=== PATIENT | male | born 1955 | race Two or more races ===

== ENCOUNTER 2021-04-16 08:13 | Outpatient (REF) | payer MEDICARE, MEDICAID, SELFPAY ==
--- NOTE | ~2021-04-16 | US_ITS ---
EXAMINATION: US RETROPERITONEAL LIMITED (AORTA) CLINICAL INFORMATION: History of smoking, hypertension. COMPARISON: None TECHNIQUE: Angel-scale, color Doppler and spectral Doppler evaluation of the abdominal aorta. The mid aorta is partially obscured by overlapping bowel gas. FINDINGS: There is atherosclerotic plaque. The measurements of the aorta in maximum AP and transverse dimensions respectively are as follows: Proximal: 2.8 x 3.0 cm. Mid: 2.3 x 2.3 cm. Distal: 1.7 x 1.6 cm. PSV: 108 cm/s. The measurements of the common iliac arteries in maximum AP and TRV dimensions are as follows: Right Common Iliac Artery: 1.2 x 1.0 cm. Left Common Iliac Artery: 1.1 x 0.9 cm. US/US aorta IMPRESSION: There is borderline aneurysmal dilatation of the proximal abdominal aorta. Recommend continued ultrasound surveillance.
== END 2021-04-16 08:14 | disposition home or self-care (01) ==
LOC: HO.US 08:13
PROVIDERS: PCP Nurse Practitioner Family; Visit Provider Nurse Practitioner Family
DX: Z13.6 Encounter for screening for cardiovascular disorders (principal); I10 Essential (primary) hypertension; Z87.891 Personal history of nicotine dependence
CPT/HCPCS: 76775

== ENCOUNTER → 2021-07-21 10:24 | Outpatient (BNVA) | payer MEDICARE, MEDICAID, SELFPAY | PROVIDERS: PCP Nurse Practitioner Family; Referring Provider Nurse Practitioner Family; Visit Provider Nurse Practitioner Family | DX: G47.33 Obstructive sleep apnea (adult) (pediatric) (principal); R06.83 Snoring; I10 Essential (primary) hypertension; F39 Unspecified mood [affective] disorder | CPT/HCPCS: 99202 ==

== ENCOUNTER 2021-10-16 14:20 | Outpatient (REF) | payer MEDICARE, MEDICAID, SELFPAY ==
--- NOTE | ~2021-10-16 | CT_ITS ---
EXAMINATION: CT CHEST SCREENING CLINICAL INFORMATION: Former smoker. 40 pack year history. COMPARISON: Previous chest CT November 2006 TECHNIQUE: Multidetector volumetric CT imaging of the chest is performed without contrast using low dose technique. Additional 2D coronal and sagittal reformatted images and axial 3D maximum intensity projection (MIP) images are generated on the CT workstation. This CT examination was performed using dose optimization techniques as appropriate, variously including the following: *Automated exposure control *Adjustment of mA and/or kV according to patient size (this includes techniques or standardized protocols for targeted exams where dose is matched to indication/reason for exam; i.e. extremities or head) *Use of iterative reconstruction technique DLP: 57 MGy-cm FINDINGS: LUNGS: There is a faint 1.2 x 1.3 cm groundglass attenuation left upper lobe nodule axial image 123 series 5. The lungs are otherwise clear. MEDIASTINUM: Mild coronary artery calcification. The mediastinum is otherwise normal. PLEURA: There is no pleural effusion. No pleural mass or thickening. AXILLA: No lymphadenopathy. UPPER ABDOMEN: Unremarkable OSSEOUS STRUCTURES: There are degenerative changes of the spine. CT/CT lung screening IMPRESSION: 1.2 x 1.3 cm solitary groundglass attenuation left upper lobe nodule ASSESSMENT: Lung-RADS category 3: Probably Benign RECOMMENDATION: Six-month low-dose chest CT follow-up recommended
== END 2021-10-16 14:21 | disposition home or self-care (01) ==
LOC: HO.CT 14:20
PROVIDERS: PCP Nurse Practitioner Family; Visit Provider Physician Assistant Medical
DX: Z87.891 Personal history of nicotine dependence (principal)
CPT/HCPCS: 71271; G0296

== ENCOUNTER → 2021-11-01 20:17 | Outpatient (REF) | payer MEDICARE, MEDICAID, SELFPAY | LOC: HO.SL 20:17 | PROVIDERS: Visit Provider Psychiatry & Neurology Neurology | DX: G47.33 Obstructive sleep apnea (adult) (pediatric) (principal); F39 Unspecified mood [affective] disorder; I10 Essential (primary) hypertension | CPT/HCPCS: 95810 ==

== ENCOUNTER → 2021-11-24 10:09 | Outpatient (BNVA) | payer MEDICARE, MEDICAID, SELFPAY | PROVIDERS: PCP Nurse Practitioner Family; Visit Provider Nurse Practitioner Family | DX: G47.33 Obstructive sleep apnea (adult) (pediatric) (principal) | CPT/HCPCS: 99212 ==

== ENCOUNTER → 2022-01-20 19:50 | Outpatient (REF) | payer MEDICARE, MEDICAID, SELFPAY | LOC: HO.SL 19:50 | PROVIDERS: PCP Nurse Practitioner Family; Visit Provider Nurse Practitioner Family | DX: G47.33 Obstructive sleep apnea (adult) (pediatric) (principal) | CPT/HCPCS: 95811 ==

== ENCOUNTER 2022-01-22 10:33 | Outpatient (REF) | payer MEDICARE, MEDICAID, SELFPAY ==
--- NOTE | ~2022-01-22 | CT_ITS ---
EXAMINATION: CT CHEST SCREENING CLINICAL INFORMATION: Pulmonary nodule follow-up COMPARISON: 10/16/2021 TECHNIQUE: Multidetector volumetric CT imaging of the chest is performed without contrast using low dose technique. Additional 2D coronal and sagittal reformatted images and axial 3D maximum intensity projection (MIP) images are generated on the CT workstation. This CT examination was performed using dose optimization techniques as appropriate, variously including the following: *Automated exposure control *Adjustment of mA and/or kV according to patient size (this includes techniques or standardized protocols for targeted exams where dose is matched to indication/reason for exam; i.e. extremities or head) *Use of iterative reconstruction technique DLP: 66 mGy-cm FINDINGS: LUNGS: Stable groundglass nodule in the left upper lobe, which approximates 2.0 x 1.7 cm transaxially, stable from prior MEDIASTINUM: Normal heart size. Triple vessel coronary calcifications. No mediastinal, hilar or supraclavicular lymphadenopathy. PLEURA: There is no pleural effusion. No pleural mass or thickening. AXILLA: No lymphadenopathy. UPPER ABDOMEN: Stable 1.1 cm cyst in the medial segment, likely subcentimeter cyst in the lateral segment. Diverticulosis coli. OSSEOUS STRUCTURES: Unremarkable. CT/CT lung screen follow up IMPRESSION: Stable 1.9 cm groundglass nodule in the left upper lobe. There are no nodules meeting criteria for short interval follow-up. ASSESSMENT: Lung-RADS category 2: Benign RECOMMENDATION: Routine annual low-dose CT screening in 12 months.
== END 2022-01-22 10:34 | disposition home or self-care (01) ==
LOC: HO.CT 10:33
PROVIDERS: Visit Provider Physician Assistant Medical
DX: Z87.891 Personal history of nicotine dependence (principal)
CPT/HCPCS: 71250

== ENCOUNTER → 2022-01-29 10:36 | Outpatient (BNVA) | payer MEDICARE, MEDICAID, SELFPAY | PROVIDERS: PCP Nurse Practitioner Family; Visit Provider Surgery | DX: R91.1 Solitary pulmonary nodule (principal); Z87.891 Personal history of nicotine dependence | CPT/HCPCS: 99202 ==

== ENCOUNTER → 2022-03-23 10:15 | Outpatient (BNVA) | payer MEDICARE, MEDICAID, SELFPAY | PROVIDERS: PCP Nurse Practitioner Family; Visit Provider Nurse Practitioner Family | DX: G47.33 Obstructive sleep apnea (adult) (pediatric) (principal) | CPT/HCPCS: 99212 ==

== ENCOUNTER 2022-04-24 19:02 | Emergency (ER) | payer MEDICARE, MEDICAID, SELFPAY ==
--- NOTE | ~2022-04-24 | XR_ITS ---
EXAMINATION: XR CHEST CLINICAL INFORMATION: Productive cough COMPARISON: None TECHNIQUE: Frontal view of the chest was obtained. FINDINGS: No airspace consolidation. No pleural effusion or pneumothorax. Normal cardiomediastinal silhouette and pulmonary vascularity. No acute osseous injury. XR/XR chest 1V IMPRESSION: No airspace consolidation or effusions.
--- NOTE | ~2022-04-24 | CT_ITS ---
EXAMINATION: CT ANGIOGRAM OF THE CHEST WITH AND WITHOUT CONTRAST (CT PULMONARY ANGIOGRAM FOR PE) CLINICAL INFORMATION: Reason for Exam cough, hemoptysis, weakness COMPARISON: 01/22/2022 TECHNIQUE: Prior to contrast administration, noncontrast localization images were obtained. Subsequently, multidetector volumetric imaging was performed from the thoracic inlet to below the diaphragms following the administration of 75 mL Omnipaque 350 intravenous contrast. No contrast reaction reported Sagittal, coronal, and MIP oblique sagittal reformatted images were obtained on the CT workstation, uploaded to PACS, and reviewed. This CT examination was performed using dose optimization techniques as appropriate, variously including the following: *Automated exposure control *Adjustment of mA and/or kV according to patient size (this includes techniques or standardized protocols for targeted exams where dose is matched to indication/reason for exam; i.e. extremities or head) *Use of iterative reconstruction technique Total exam dose-length product 399 mGy-cm FINDINGS: QUALITY OF STUDY/CONTRAST BOLUS: Satisfactory. PULMONARY ARTERIES: No central or segmental pulmonary emboli. THORACIC AORTA: No aneurysm or dissection. Calcification is present at the aortic arch. LUNG: There are symmetric regions of patchy consolidation/groundglass opacity bilaterally with lower lung zone predominance. Previously identified subtle focal ground glass opacity in the left upper lobe on 01/22/2022 persists. PLEURA: No pleural effusion or pneumothorax. MEDIASTINUM: The visualized thyroid gland is unremarkable. There are subcentimeter mediastinal lymph nodes within the range of normal variation. Borderline cardiomegaly without pericardial effusion. No evidence of septal bowing or right heart strain. CHEST WALL/AXILLA: No axillary or internal mammary lymphadenopathy. OSSEOUS STRUCTURES: Degenerative changes are noted in the spine. UPPER ABDOMEN: Small hypoattenuating foci in the liver are statistically favored to represent cysts. No reflux of contrast into the hepatic veins to suggest elevated right heart pressures. CT/CT angio chest PE protocol IMPRESSION: 1. No pulmonary embolus identified. 2. Basilar predominant patchy bilateral consolidations. Clinical correlation is recommended, as this distribution can be seen with Covid pneumonia. 3. Previously identified subtle focal ground glass opacity in the left upper lobe on 01/22/2022 again noted; attention on follow-up recommended as per prior report recommendations. VTE: negative
[2022-04-24 19:26] VITALS: BP 147/75; PULSE 87; RESP 18; TEMP 37.8; O2SAT 95
[2022-04-24 19:50] LABS: Hematocrit 46.6 % (42.0-52.0); Hemoglobin 15.3 g/dl (14.0-18.0); Imm Gran Abs Auto 0.01 X10*3/uL (0.00-0.03); Imm Gran Pct Auto 0.2 % (0.0-0.4); Lymphocytes Absolute Auto 1.4 X10*3/uL (1.2-4.9); Lymphocytes Percent Auto 33.3 % (20-40); MANUAL DIFF FLAG SCAN; Mean Corpuscular HGB Conc 32.8 g/dl (31.0-36.0); Mean Corpuscular Hemoglobin 28.9 pg (27.0-33.0); Mean Corpuscular Volume 87.9 fL (80.0-98.0); Mean Platelet Volume 10.7 fL (9.4-12.4); Monocytes Absolute Auto 0.7 X10*3/uL (0.1-1.2); Monocytes Percent Auto 18.2 % (2-11); Neutrophils Percent Auto 48.3 % (45-73); Platelet Count 179 X10*3/uL (160-400); Red Cell Distribution Width 13.4 % (11.0-16.0); SCAN SMEAR FLAG 1; White Blood Count 4.1 X10*3/uL (4.8-10.8)
[2022-04-24 19:57] VITALS: BP 145/75; PULSE 87; RESP 18; TEMP 37.8; O2SAT 95; BMI 31.0
[2022-04-24 20:09] LABS: Alanine Aminotransferase 85 U/L (0-40); Albumin Level 3.5 g/dL (3.5-5.0); Alkaline Phosphatase 61 U/L (39-117); Anion Gap 15 (12-20); Aspartate Amino Transferase 66 U/L (5-37); Bilirubin Total 0.6 mg/dL (0.0-1.0); Blood Urea Nitrogen 20 mg/dL (9-16); Calcium 8.2 mg/dL (8.4-10.2); Carbon Dioxide 26 mmol/L (22-29); Chloride 101 mmol/L (96-108); Creatinine Clr Calc Pharmacy 82.1; Estimated Glomerular Filt Rate > 60; Glucose Random 129 mg/dL (60-115); Sodium 138 mmol/L (135-145); Total Protein 7.5 g/dL (6.5-8.0)
[2022-04-24 20:29] LABS: SLIDE REVIEW VERIFIED
[2022-04-24 20:49] LABS: COVID-19 Test Positive (Negative)
--- NOTE | 2022-04-24 21:06 | ED.GENADULT ---
HPI - General Adult General Chief complaint: General Medical Stated complaint: Unsteady gait/Not feeling well Time Seen by Provider: 04/24/22 21:05 Source: patient, family and old records reviewed Mode of arrival: ambulatory Limitations: no limitations History of Present Illness HPI narrative: 66 yo male with hx of SERGEI, HLD, pulmonary nodule, HTN, dx with COVID 2.5 weeks ago reports overall feeling weak and tired and 1 week reports productive cough with hemoptysis only on ASA. He is followed for a stable lung nodule by thoracic surgery MD complaint: cough with hemopytis Onset (ago): week(s) (1) Location: chest Severity: moderate Quality: dull Pain Consistency: intermittent Relieving factors: none Exacerbating factors: other (exertion and coughing) Associated symptoms: loss of appetite, malaise, shortness of breath and weakness Treatments prior to arrival: none Related Data Home Medications Medication Instructions Recorded Confirmed amlodipine 10 mg tablet 10 mg PO DAILY 07/21/21 03/23/22 aspirin 81 mg tablet,delayed 81 mg PO DAILY 07/21/21 03/23/22 release atorvastatin 40 mg tablet 40 mg PO DAILY 07/21/21 03/23/22 blood pressure test kit-large #1 ea 07/21/21 03/23/22 chlorthalidone 25 mg tablet 25 mg PO DAILY 07/21/21 03/23/22 losartan 50 mg tablet 50 mg PO DAILY 07/21/21 03/23/22 metoprolol tartrate 25 mg tablet 25 mg PO BID 07/21/21 03/23/22 Previous Rx's Medication Instructions Recorded cefuroxime axetil 500 mg tablet 500 mg PO BID 7 days #14 tabs 04/24/22 dexamethasone 6 mg tablet 6 mg PO DAILY 5 days #5 tabs 04/24/22 doxycycline hyclate 100 mg capsule 100 mg PO BID 7 days #14 caps 04/24/22 Allergies Allergy/AdvReac Type Severity Reaction Status Date / Time No Known Allergies Allergy Verified 04/24/22 19:56 Review of Systems Review of Systems: Constitutional : No Fever, No Chills, pos fatigue ENT/Mouth : No sore throat, No Rhinorrhea, No Swallowing Difficulty Eyes: No Eye Pain, No Swelling, No Redness Cardiovascular : No Chest Pain, positive SOB, No Orthopnea, pos Edema Respiratory : pos Cough, pos Sputum, No Wheezing, positive dyspnea Gastrointestinal : No Nausea, No Vomiting, No Diarrhea, No abdominal Pain, No Hematochezia, No Melena Genitourinary : No Dysuria, No Urinary Frequency, No Hematuria Musculoskeletal : No joint pain, No Myalgias Skin : No Skin Lesions, No rash Neuro : pos Weakness, No Numbness, No Dizziness, No Headache Psych : No Anxiety/Panic, No Depression Heme/Lymph: No Bruising, No Lymphadenopathy Endocrine : No Polyuria, No Polydipsia All other systems reviewed and are negative [facility] Past Medical History Attestation statement: The following information was validated with the patient. Medical History Dilation of aorta (~03/2021) Essential hypertension Hyperlipidemia Mood disorder Obstructive sleep apnea Personal history of nicotine dependence Surgical History History of carpal tunnel surgery History of circumcision History of colonoscopy History of knee replacement procedure of left knee History of knee replacement procedure of right knee Family History Family History Mother Alzheimers disease Father CAD (coronary artery disease) Stroke Brother Thyroid disease Brother Colon cancer Brother Prostate cancer Sister Breast cancer Social History Social History Household Members: Spouse Alcohol intake: never Patient Tobacco Use Status: Former Tobacco user Tobacco use type: Cigarette and Cigar Cigarette Packs Per Day: 1 Years Smoked: onset 18yo, 1ppd x 33yrs, 30pyh, quit 2007 Use of substances other than those prescribed or required for medical reasons: No Advance Directives: No Advance Directives Information Provided: No Physical Exam ED Vital Signs: Vital Signs - 24 hr 04/24/22 19:26 04/24/22 19:57 04/24/22 21:54 Temperature 100.1 F 100.1 F 98.6 F Pulse Rate 87 87 86 Respiratory Rate 18 18 18 Blood Pressure 147/75 H 145/75 H 125/75 Pulse Oximetry 95 95 94 Oxygen Delivery Method Room Air Room Air Room Air BMI result Body Mass Index 31.0 Appearance: Alert. Oriented X3. No acute distress. Eyes: Pupils equal, round and reactive to light. ENT: Pharynx normal. Neck: Normal inspection. Neck supple. CVS: Normal heart rate and rhythm. Pulses normal. Respiratory: No respiratory distress. Breath sounds diminished. Scant streaks of blood brb noted on kleenex Abdomen: Soft and nontender. Skin: Skin warm and dry. Normal skin color. Normal skin turgor. Extremities: trace bilateral L > R lower extremity edema. No calf ttp Neuro: Oriented X 3. No motor deficit. No sensory deficit. Course Course Course Narrative: + COVID pneumonia but no hypoxia and dx 2.5 weeks ago anticipate starting on steroids and antibiotics stop aspirin follow up with PCP Medical Decision Making [facility] Narrative Medical decision making narrative: 66 yo male with hx of SERGEI, HLD, pulmonary nodule, HTN here with c/o worsening fatigue, LANDA, weakness and poor PO intake now with associated cough and hemoptysis. He was dx with COVID 2.5 weeks ago did not receive any treatments. At this time will need labs, EKG, CTA for PE / Mass. Dispo per results and findings. Lab Data Result diagrams: 04/24/22 19:44 04/24/22 19:44 Labs: Lab Results 04/24/22 04/24/22 04/24/22 Range/Units 19:44 19:44 19:44 WBC 4.1 L (4.8-10.8) X10*3/uL RBC 5.30 (4.60-5.80) X10*6/uL Hgb 15.3 (14.0-18.0) g/dl Hct 46.6 (42.0-52.0) % MCV 87.9 (80.0-98.0) fL MCH 28.9 (27.0-33.0) pg MCHC 32.8 (31.0-36.0) g/dl RDW 13.4 (11.0-16.0) % Plt Count 179 (160-400) X10*3/uL MPV 10.7 (9.4-12.4) fL Immature Gran % (Auto) 0.2 (0.0-0.4) % Neut % (Auto) 48.3 (45-73) % Lymph % (Auto) 33.3 (20-40) % [place] % (Auto) 18.2 H (2-11) % Eos % (Auto) 0.0 (0-4) % Baso % (Auto) 0.0 (0-2) % Lymph # (Auto) 1.4 (1.2-4.9) X10*3/uL [place] # (Auto) 0.7 (0.1-1.2) X10*3/uL Eos # (Auto) 0.0 (0.0-0.4) X10*3/uL Baso # (Auto) 0.0 (0.0-0.2) X10*3/uL Abs Immat Gran (auto) 0.01 (0.00-0.03) X10*3/uL Absolute Neuts (auto) 2.0 (2.0-8.3) x10*3/uL Absolute Nucleated RBC 0.000 (0.0-0.012) X10*3/uL Nucleated RBC % (auto) 0.0 (0.0-0.2) /100WBC Smear Tech's Comments VERIFIED Sodium 138 (135-145) mmol/L Potassium 4.0 (3.3-5.1) mmol/L Chloride 101 (96-108) mmol/L Carbon Dioxide 26 (22-29) mmol/L Anion Gap 15 (12-20) BUN 20 H (9-16) mg/dL Creatinine 0.95 (0.5-1.4) mg/dL Estim Creat Clear Calc 82.1 Estimated GFR > 60 Random Glucose 129 H (60-115) mg/dL Calcium 8.2 L (8.4-10.2) mg/dL Total Bilirubin 0.6 (0.0-1.0) mg/dL AST 66 H (5-37) U/L ALT 85 H (0-40) U/L Alkaline Phosphatase 61 (39-117) U/L Troponin I High Sens (<3.5-35.0) ng/L B-Natriuretic Peptide (<100) pg/mL Total Protein 7.5 (6.5-8.0) g/dL Albumin 3.5 (3.5-5.0) g/dL COVID-19 (JAYCOB) Positive A (Negative) COVID-19 Clin Com See Note 04/24/22 Range/Units 19:44 WBC (4.8-10.8) X10*3/uL RBC (4.60-5.80) X10*6/uL Hgb (14.0-18.0) g/dl Hct (42.0-52.0) % MCV (80.0-98.0) fL MCH (27.0-33.0) pg MCHC (31.0-36.0) g/dl RDW (11.0-16.0) % Plt Count (160-400) X10*3/uL MPV (9.4-12.4) fL Immature Gran % (Auto) (0.0-0.4) % Neut % (Auto) (45-73) % Lymph % (Auto) (20-40) % [place] % (Auto) (2-11) % Eos % (Auto) (0-4) % Baso % (Auto) (0-2) % Lymph # (Auto) (1.2-4.9) X10*3/uL [place] # (Auto) (0.1-1.2) X10*3/uL Eos # (Auto) (0.0-0.4) X10*3/uL Baso # (Auto) (0.0-0.2) X10*3/uL Abs Immat Gran (auto) (0.00-0.03) X10*3/uL Absolute Neuts (auto) (2.0-8.3) x10*3/uL Absolute Nucleated RBC (0.0-0.012) X10*3/uL Nucleated RBC % (auto) (0.0-0.2) /100WBC Smear Tech's Comments Sodium (135-145) mmol/L Potassium (3.3-5.1) mmol/L Chloride (96-108) mmol/L Carbon Dioxide (22-29) mmol/L Anion Gap (12-20) BUN (9-16) mg/dL Creatinine (0.5-1.4) mg/dL Estim Creat Clear Calc Estimated GFR Random Glucose (60-115) mg/dL Calcium (8.4-10.2) mg/dL Total Bilirubin (0.0-1.0) mg/dL AST (5-37) U/L ALT (0-40) U/L Alkaline Phosphatase (39-117) U/L Troponin I High Sens 6.0 (<3.5-35.0) ng/L B-Natriuretic Peptide < 10 (<100) pg/mL Total Protein (6.5-8.0) g/dL Albumin (3.5-5.0) g/dL COVID-19 (JAYCOB) (Negative) COVID-19 Clin Com ECG Data Attestation: I personally reviewed and interpreted this ECG as follows: Interpretation: Rate: 81 Rhythm: NSR [place]: normal Normal P waves. Normal MEE. Normal QRS complex. ST T wave : normal no AUBREY qTC: normal prior studies: no acute ischemia The study has been interpreted contemporaneously by me. . Discharge Plan Discharge Clinical Impression: Atypical pneumonia, Cough with hemoptysis Patient Disposition: Home, Self-Care Instructions: Hemoptysis (ED), Pneumonia (ED) Additional Instructions: regresar al servicio de urgencias por cualquier empeoramiento de los s?ntomas o inquietudes SIN ASPIRINA Prescriptions: New doxycycline hyclate 100 mg capsule 100 mg PO BID 7 Days Qty: 14 0RF cefuroxime axetil 500 mg tablet 500 mg PO BID 7 Days Qty: 14 0RF dexamethasone 6 mg tablet 6 mg PO DAILY 5 Days Qty: 5 0RF No Action metoprolol tartrate 25 mg tablet 25 mg PO BID amlodipine 10 mg tablet 10 mg PO DAILY aspirin 81 mg tablet,delayed release (DR/EC) 81 mg PO DAILY chlorthalidone 25 mg tablet 25 mg PO DAILY atorvastatin 40 mg tablet 40 mg PO DAILY losartan 50 mg tablet 50 mg PO DAILY (DME) blood pressure test kit-large Kit See Rx Instructions .ROUTE DAILY Qty: 1 Rx Instructions: As directed Referrals: Maris Subramanian [Primary Care Provider] - 3 days (if not better) Print Language: Occitan
--- NOTE | 2022-04-24 21:50 | ECG_ITS ---
Test Reason : dyspenea Blood Pressure : / mmHG Vent. Rate : 081 BPM Atrial Rate : 081 BPM P-R Int : 192 ms QRS Dur : 082 ms QT Int : 384 ms P-R-T Axes : 045 -03 004 degrees QTc Int : 446 ms Normal sinus rhythm Normal ECG When compared with ECG of 25-JUN-2008 08:32, No significant change was found Referred By: Corina Llanes Electronically Signed By:HORTENCIA PARSONS
[2022-04-24 21:54] VITALS: BP 125/75; PULSE 86; RESP 18; TEMP 37; O2SAT 94
[2022-04-24 22:15] LABS: B Type Natriuretic Peptide < 10 pg/mL (<100)
[2022-04-24] MEDS: HYDROcodone/Homat 5/1.5/5 ML 5 ML SYRUP PO (22:39)
[2022-04-24] MEDS: ondansetron HCL 4 MG/2 ML VIAL IVPUSH (22:40)
--- NOTE | 2022-04-24 22:40 | PC.NURSE ---
pt drowsy, orientedx3, vss, medicated per provider order, 20G IV placed right AC.
[2022-04-25] MEDS: dexAMETHasone 6 MG TABLET PO (01:12)
== END 2022-04-25 01:17 | disposition home or self-care (01) ==
PROVIDERS: Emergency Provider Emergency Medicine; PCP Nurse Practitioner Family
DX: U07.1 COVID-19 (principal); J12.82 Pneumonia due to coronavirus disease 2019; R05.9 Cough, unspecified; R04.2 Hemoptysis; R53.1 Weakness; R06.02 Shortness of breath; I10 Essential (primary) hypertension; E78.5 Hyperlipidemia, unspecified; R26.81 Unsteadiness on feet; Z79.02 Long term (current) use of antithrombotics/antiplatelets; Z79.82 Long term (current) use of aspirin; Z79.899 Other long term (current) drug therapy; Z87.891 Personal history of nicotine dependence
CPT/HCPCS: 71045; 71275; 80053; 83880; 84484; 85025; 87635; 93005; 96374; 99284; J2405; J8540

== ENCOUNTER 2022-06-09 09:51 | Outpatient (REF) | payer MEDICARE, MEDICAID, SELFPAY ==
--- NOTE | ~2022-06-09 | US_ITS ---
EXAMINATION: US RETROPERITONEAL LIMITED (AORTA) CLINICAL INFORMATION: Aortic ectasia. Smoking history.. COMPARISON: 04/16/2021 TECHNIQUE: Angel-scale, color Doppler and spectral Doppler evaluation of the abdominal aorta. FINDINGS: Atherosclerotic aorta. The measurements of the aorta in maximum AP and transverse dimensions respectively are as follows: Proximal: 2.9 x 2.9 cm. Mid: 2.4 x 2.5 cm. Distal: 1.7 x 1.8 cm. PSV: 134 cm/s. The measurements of the common iliac arteries in maximum AP and TRV dimensions are as follows: Right Common Iliac Artery: 1.2 x 1.1 cm. Left Common Iliac Artery: 1.2 x 1.0 cm. US/US abdominal aortic aneurysm IMPRESSION: Stable study. The proximal abdominal aorta is at the upper limits of normal.
== END 2022-06-09 09:52 | disposition home or self-care (01) ==
LOC: HO.US 09:51
PROVIDERS: Visit Provider Nurse Practitioner Family
DX: I77.819 Aortic ectasia, unspecified site (principal); D12.6 Benign neoplasm of colon, unspecified; D75.1 Secondary polycythemia; E66.9 Obesity, unspecified; E78.5 Hyperlipidemia, unspecified; G47.33 Obstructive sleep apnea (adult) (pediatric); I10 Essential (primary) hypertension; M25.562 Pain in left knee; N52.9 Male erectile dysfunction, unspecified; R73.03 Prediabetes; R91.8 Other nonspecific abnormal finding of lung field; Z87.891 Personal history of nicotine dependence
CPT/HCPCS: 76706

== ENCOUNTER → 2022-07-20 10:18 | Outpatient (BNVA) | payer MEDICARE, MEDICAID, SELFPAY | PROVIDERS: PCP Nurse Practitioner Family; Visit Provider Nurse Practitioner Family | DX: G47.33 Obstructive sleep apnea (adult) (pediatric) (principal) | CPT/HCPCS: 99212 ==

== ENCOUNTER 2022-08-06 08:50 | Outpatient (REF) | payer MEDICARE, MEDICAID, SELFPAY ==
--- NOTE | ~2022-08-06 | CT_ITS ---
EXAMINATION: CT CHEST SCREENING CLINICAL INFORMATION: Solitary pulmonary. COMPARISON: None. TECHNIQUE: Multidetector volumetric CT imaging of the chest is performed without contrast using low dose technique. Additional 2D coronal and sagittal reformatted images and axial 3D maximum intensity projection (MIP) images are generated on the CT workstation. This CT examination was performed using dose optimization techniques as appropriate, variously including the following: *Automated exposure control *Adjustment of mA and/or kV according to patient size (this includes techniques or standardized protocols for targeted exams where dose is matched to indication/reason for exam; i.e. extremities or head) *Use of iterative reconstruction technique DLP: 60 mGy-cm FINDINGS: LUNGS: The lungs are well-expanded and clear of acute pneumonic process. No pulmonary nodule, mass or groundglass density seen. MEDIASTINUM: The thyroid lobes are symmetric and normal. The central trachea and bronchi are widely patent. Heart size and the great vessels are normal caliber. No abnormal size mediastinal or hilar lymph nodes seen. There is no pericardial effusion seen. CORONARY ARTERY CALCIFICATION: Mild coronary artery calcifications are present. PLEURA: There is no pleural effusion. No pleural mass or thickening. AXILLA: No lymphadenopathy. UPPER ABDOMEN: Visualized liver, spleen, pancreas, adrenal glands and the gallbladder appears unremarkable. OSSEOUS STRUCTURES: No aggressive lytic or sclerotic process seen. There is mild to moderate ventral spondylosis throughout dorsal spine. No aggressive lytic or sclerotic process seen. CT/CT lung screen follow up IMPRESSION: No acute process. No pulmonary nodule visualized. ASSESSMENT: Lung-RADS category 1: Negative. RECOMMENDATION: Low-dose annual CT chest.
== END 2022-08-06 08:51 | disposition home or self-care (01) ==
LOC: HO.CT 08:50
PROVIDERS: Visit Provider Surgery
DX: R91.1 Solitary pulmonary nodule (principal)
CPT/HCPCS: 71250

== ENCOUNTER → 2022-08-18 14:03 | Outpatient (BNVA) | payer MEDICARE, MEDICAID, SELFPAY | PROVIDERS: PCP Nurse Practitioner Primary Care; Visit Provider Urology | DX: N52.9 Male erectile dysfunction, unspecified (principal) | CPT/HCPCS: 99202 ==

== ENCOUNTER → 2022-10-08 09:23 | Outpatient (BNVA) | payer MEDICARE, MEDICAID, SELFPAY | PROVIDERS: PCP Nurse Practitioner Primary Care; Visit Provider Surgery | DX: R91.1 Solitary pulmonary nodule (principal); J18.9 Pneumonia, unspecified organism; U09.9 Post COVID-19 condition, unspecified; I77.810 Thoracic aortic ectasia; I10 Essential (primary) hypertension; Z87.891 Personal history of nicotine dependence | CPT/HCPCS: 99212 ==

== ENCOUNTER → 2022-11-19 14:55 | Outpatient (BNVA) | payer MEDICARE, MEDICAID, SELFPAY | PROVIDERS: PCP Nurse Practitioner Primary Care; Visit Provider Urology | DX: N52.9 Male erectile dysfunction, unspecified (principal); I10 Essential (primary) hypertension; E78.5 Hyperlipidemia, unspecified; G47.30 Sleep apnea, unspecified; F17.290 Nicotine dependence, other tobacco product, uncomplicated; Z79.82 Long term (current) use of aspirin; Z79.899 Other long term (current) drug therapy | CPT/HCPCS: 99212 ==

== ENCOUNTER → 2023-01-03 10:31 | Outpatient (BNVA) | payer OTHER, SELFPAY | PROVIDERS: PCP Nurse Practitioner Primary Care; Visit Provider Nurse Practitioner Family | DX: G47.33 Obstructive sleep apnea (adult) (pediatric) (principal); Z99.89 Dependence on other enabling machines and devices | CPT/HCPCS: 99212 ==

== ENCOUNTER 2023-06-09 11:15 | Outpatient (AMB) | payer MEDICARE, MEDICAID, SELFPAY ==
--- NOTE | 2023-06-09 11:30 | A.OFFVIS_ITS ---
Intake Vital Signs 06/09/23 11:33 Height 5 ft 8 in Weight 209 lb BMI 31.8 Pulse 61 Pulse Source Pulse Oximeter Pulse Oximetry (%) 99 Oxygen Delivery Method Room Air Intake Visit Reasons: 5 mnts f/u appt-Confirmed Intake Note: Patient presents for 5 month follow up. Patient states just a follow up Allergies No Known Allergies Allergy (Verified 06/09/23 11:35) Medication List - Last Reconciled 06/09/23 by JAHAIRA Charlton aspirin 81 mg PO DAILY atorvastatin 40 mg PO BEDTIME blood pressure test kit-large As directed chlorthalidone 25 mg PO DAILY diclofenac sodium 1% 2 grams topical QID lisinopril 20 mg PO DAILY metoprolol tartrate 25 mg PO BID HPI HPI Comments History of Present Illness Details 67-yr-old male presents for f/u visit. Pt reports he is sleeping well with CPAP now, however he does not sleep much more than 4 hrs per night. Takes a 1/2 hr daily am walk. Takes 2 cups of coffee only in the am Denies daytime naps Denies watching TV in bed. Does watch [employer] on his phone in the living room 30 day CPAP compliance report shows: CPAP 13 cmH2O Overall usage 97% Usage > 4 hrs 50% Average use 4 hrs 22 min Residual AHI 4.3/hr PFSH Medical History Dilation of aorta (~03/2021) Essential hypertension Hyperlipidemia Mood disorder Obstructive sleep apnea Personal history of nicotine dependence Surgical History History of colonoscopy History of carpal tunnel surgery History of circumcision History of knee replacement procedure of right knee History of knee replacement procedure of left knee Family History Mother Alzheimers disease Father CAD (coronary artery disease) Stroke Brother Thyroid disease Brother Colon cancer Brother Prostate cancer Sister Breast cancer Social History Household Members: Spouse Alcohol intake: current Alcohol intake frequency: other Patient Tobacco Use Status: Former Tobacco user Tobacco use type: Cigarette and Cigar Cigarette Packs Per Day: 1 Years Smoked: onset 18yo, 1ppd x 33yrs, 30pyh, quit 2007 Review of Systems Const All systems reviewed & are unremarkable except as noted in HPI and below Physical Exam Vital Signs: Last Vital Signs Pulse 61 06/09/23 11:33 Pulse Ox 99 06/09/23 11:33 Oxygen Delivery Method Room Air 06/09/23 11:33 BMI result Body Mass Index 31.8 Const General: cooperative and no acute distress Orientation/consciousness: patient oriented x3 HEENT Head: Yes normocephalic Resp Effort & Inspection: normal respiratory effort and able to speak in complete sentences Neuro General: patient oriented x3 and CN's II-XI intact bilaterally Cognition (Neuro): normal cognition Motor exam (neuro): 5/5 motor strength present throughout Psych Appearance: grossly normal Mental Status: mental status grossly normal Speech and movement: Normal speech and movement present Affect: normal affect Attitude: cooperative Assessment & Plan Assessment & Plan (1) Obstructive sleep apnea: Comment: AHI 15.2/hr, REM AHI 27/hr, O2 dallin 76%. Code(s): G47.33 - Obstructive sleep apnea (adult) (pediatric) Plan Continue CPAP 13 cmH2O nightly > 4 hours, w/ EPR from 3, as pt is sleeping better from use. Will request new supplies. Sleep hygiene tips shared w/ pt- Portuguese tip sheet given. Try adding Melatonin 3mg q 10pm to promote sleep maintenance F/u in 4 months or sooner prn. Medications: New melatonin 3 mg PO BEDTIME 30 days PRN 30 caps 3RF sleep Coding Level of Care Code Est Pt Level 3 (84904) Diagnoses Obstructive sleep apnea G47.33
[2023-06-09 11:33] VITALS: PULSE 61; O2SAT 99; BMI 31.8
== END 2023-06-09 12:12 | disposition home or self-care (01) ==
PROVIDERS: Visit Provider Nurse Practitioner Family
DX: G47.33 Obstructive sleep apnea (adult) (pediatric) (principal)
CPT/HCPCS: 99213

== ENCOUNTER → 2023-06-09 11:15 | Outpatient (BNVA) | payer OTHER, SELFPAY | PROVIDERS: Visit Provider Nurse Practitioner Family | DX: G47.33 Obstructive sleep apnea (adult) (pediatric) (principal); Z99.89 Dependence on other enabling machines and devices | CPT/HCPCS: 99212 ==

== ENCOUNTER 2023-10-25 09:05 | Outpatient (REF) | payer OTHER, SELFPAY ==
--- NOTE | ~2023-10-25 | CT_ITS ---
EXAMINATION: CT CHEST LOW-DOSE SCREENING WITHOUT CONTRAST HISTORY: Asymptomatic patient meeting criteria for lung screening. No history of lung carcinoma. PATIENT PACK-YEAR HISTORY: 28 Current Smoker: No If former smoker, years since quittin COMPARISON: CT lung screening on 08/06/[address] volumetric non-contrast CT imaging of the chest was obtained on a Siemens Definition 64 scanner using low-dose screening CT technique. Axial thin section 0.625 mm reformations in soft tissue and lung windows were obtained. Sagittal and coronal reformations were obtained. Axial MIP images were also created and reviewed. RECONSTRUCTED WIDTH: 1.25 mm x 1.[address] examination was performed using dose optimization techniques as appropriate, variously including the following: *Automated exposure control *Adjustment of mA and/or kV according to patient size (this includes techniques or standardized protocols for targeted exams where dose is matched to indication/reason for exam; i.e. extremities or head) *Use of iterative reconstruction technique TOTAL EXAM DLP: 71 mGy-cm CTDIvol: 1.90 mGy FINDINGS: LUNGS: Lungs bilaterally symmetrically expanded. No focal lung nodule or mass. No effusion or pneumothorax. Central airways patent. -No pulmonary nodule demonstrated. LYMPHATIC STRUCTURES: No mediastinal, hilar or axillary adenopathy or free fluid collection. THYROID GLAND: Unremarkable to the extent seen. CARDIOVASCULAR STRUCTURES: Ascending thoracic aortic fusiform ectasia is seen measuring 3.7 cm in AP and transverse diameter. Cardiac size is normal. Moderate coronary artery calcifications. No pericardial effusion. UPPER ABDOMEN: Left hepatic dome segment 4A simple cyst is seen measuring 1.0 cm in diameter, mean attenuation of 2.7 Hounsfield units. OSSEOUS STRUCTURES: No suspicious focal findings. SPINAL COMPRESSION: Absent. Altered level sharp thoracic spine syndesmophytes are present. CT/CT lung screening IMPRESSION: 1. No findings suspicious for malignancy/pulmonary nodule(s)/other. 2. Negative. LUNG-RADS CATEGORY ASSESSMENT: 1: Negative INCIDENTAL FINDINGS (S CATEGORY): Finding: No incidental findings. Significance category: Normal or normal variant. RECOMMENDATION: Low dose lung CT. overall in 1 year. Visual estimate of coronary calcified plaque burden: Moderate. However, this exam cannot replace a dedicated cardiac CT calcium score for accurate assessment.
== END 2023-10-25 09:06 | disposition home or self-care (01) ==
LOC: HO.CT 09:05
PROVIDERS: PCP Internal Medicine; Visit Provider Nurse Practitioner Family
DX: Z87.891 Personal history of nicotine dependence (principal)
CPT/HCPCS: 71271

== ENCOUNTER 2023-11-18 13:55 | Outpatient (AMB) | payer OTHER, SELFPAY ==
--- NOTE | 2023-11-18 14:10 | A.OFFVIS_ITS ---
Intake Intake Visit Reasons: ED- 1yr follow up Intake Note: Patient presents today for a yearly follow up on erectile dysfunction Meds- None Allergies to Antibiotic- No Known Allergies Blood Thinner- Aspirin Patient stated he is been having issues with ED, and the medication does not work effectively. Academic Affairs Director Required: Yes Accompanied by: juanther Allergies Lisinopril Adverse Reaction (Severe, Uncoded 11/18/23 14:25) nose bleed Medication List - Last Reconciled 11/18/23 by Josue Hutchinson MD aspirin 81 mg PO DAILY atorvastatin 40 mg PO BEDTIME blood pressure test kit-large As directed chlorthalidone 25 mg PO DAILY diclofenac sodium 1% 2 grams topical QID lisinopril 20 mg PO DAILY melatonin 3 mg PO BEDTIME PRN 30 days metoprolol tartrate 25 mg PO BID sildenafil 100 mg PO ONCE PRN 30 days HPI HPI Comments History of Present Illness Details Mae is a pleasant Kazakh-speaking male. He is a patient Dr. Flood. He is seen for the following urologic conditions - erectile dysfunction Kazakh translation provided in office by qualified medical reception Reasonable response to Viagra Feels not quite firm enough Suggest increasing dose Six-month follow-up Erectile dysfunction Able to obtain but cannot maintain erection Concurrent diagnosis of nicotine dependence, hypertension, sleep apnea, dyslipidemia Has not used oral medications previously Good response to oral Viagra [facility] Medical History Dilation of aorta (~03/2021) Personal history of nicotine dependence Mood disorder Essential hypertension Hyperlipidemia Obstructive sleep apnea Surgical History History of colonoscopy History of carpal tunnel surgery History of circumcision History of knee replacement procedure of right knee History of knee replacement procedure of left knee Family History Mother Alzheimers disease Father CAD (coronary artery disease) Stroke Brother Thyroid disease Brother Colon cancer Brother Prostate cancer Sister Breast cancer Social History Household Members: Spouse Alcohol intake: current Alcohol intake frequency: other Patient Tobacco Use Status: Former Tobacco user Tobacco use type: Cigarette and Cigar Cigarette Packs Per Day: 1 Years Smoked: onset 18yo, 1ppd x 33yrs, 30pyh, quit 2007 Review of Systems Const Denies chills and Denies fever(s) Card Reports no additional complaints and Denies syncope Resp Denies cough GI Denies abdominal pain and Denies heartburn Reports as per HPI and Denies change in libido Neuro Denies syncope Psych Denies change in libido Endo Denies change in libido Physical Exam Const General: cooperative, healthy appearing, comfortable and no acute distress Orientation/consciousness: patient oriented x3 HEENT Face and sinus: Yes normal facial exam Mouth: moist mucous membranes Neck Neck: Yes normal visual inspection, Yes full ROM and Yes trachea midline Chest Chest palpation & inspection: normal inspection of the chest Resp Effort & Inspection: normal respiratory effort, able to speak in complete sentences and no respiratory distress GI Inspection: Yes normal to inspection Back/Spine/Pelvis Cervical Spine: normal cervical lordosis Thoracic/Lumbar Spine: thoracic and lumbar spine normal to inspection Skin General skin exam: no rashes or lesions noted Neuro General: patient oriented x3, gait normal, tone normal and moves all extremities Extrem General: Yes normal to inspection and Yes capillary refill normal Assessment & Plan Assessment & Plan (1) Erectile dysfunction: Code(s): N52.9 - Male erectile dysfunction, unspecified Plan Increased dose Six-month follow-up tele Medications: New sildenafil administer 60 minutes before intended activity 100 mg PO ONCE PRN 30 tabs 1RF sexual activity 30 days N52.9 - Male erectile dysfunction, unspecified Patient Instructions: Imaging studies, laboratory and physical exam results were discussed and reviewed in detail. No major barriers to patient understanding were identified. An opportunity to ask questions regarding the treatment plan was provided. All questions were answered. The patient expressed understanding and agreement with the above treatment plan. The patient is aware they should contact our office by phone for worsening of their current condition or the appearance of new urologic symptoms. Compliance is encouraged with any medications and followup testing that is ordered. It is a privilege to participate in the urologic care of your patient. If you have any questions or concerns regarding treatment for the above conditions, or other urologic issues, please do not hesitate to contact me. The office telephone contact is [phone]. This note is constructed using voice recognition software. While every effort has been made to ensure accuracy multimedia educational specialist errors may have been included. Yours sincerely, Dr Josue Hutchinson MD, [facility] - Urology Providers of Expert, Compassionate Care for the Genitourinary System Coding Level of Care Code Est Pt Level 4 (68808) Diagnoses Erectile dysfunction N52.9
== END 2023-11-18 14:56 | disposition home or self-care (01) ==
PROVIDERS: Visit Provider Urology
DX: N52.9 Male erectile dysfunction, unspecified (principal)
CPT/HCPCS: 99213

== ENCOUNTER → 2023-11-18 13:55 | Outpatient (BNVA) | payer OTHER, SELFPAY | PROVIDERS: Visit Provider Urology | DX: N52.9 Male erectile dysfunction, unspecified (principal) | CPT/HCPCS: 99212 ==

== ENCOUNTER 2023-12-23 10:19 | Outpatient (AMB) | payer OTHER, SELFPAY ==
--- NOTE | 2023-12-23 10:48 | MHC.OFFVIS ---
Vital Signs 12/23/23 10:50 Height 5 ft 8 in Weight 222 lb 2 oz BMI 33.8 BP 138/82 Blood Pressure Location Rt brachial Position Sitting Pulse 52 Pulse Source Pulse Oximeter Pulse Oximetry (%) 100 Oxygen Delivery Method Room Air Intake Visit Reasons: 5 mnts f/u appt/ LM Intake Note: Patient presents for 5 month follow up. Allergies Lisinopril Adverse Reaction (Severe, Uncoded 12/23/23 10:52) nose bleed HPI Comments Details: 68-yr-old male presents for follow-up visit. Pt reports he was dx'd w/ pre-diabetes. Pt reports he is sleeping well with CPAP now, however he does not sleep much more than 4 1/2 hrs per night. Denies daytime naps. His caregiver does see him take small cat naps when inactive. Takes a 1/2 hr daily am walk. 09/24/23-12/22/23, 90 day CPAP compliance report shows: CPAP 13 cmH2O w/ EPR 3. Overall usage 100% Usage > 4 hrs 99% Average use 5 hrs 58 min Residual AHI 2.2/hr PFSH Medical History Dilation of aorta (~03/2021) Personal history of nicotine dependence Mood disorder Essential hypertension Hyperlipidemia Obstructive sleep apnea Surgical History History of colonoscopy History of carpal tunnel surgery History of circumcision History of knee replacement procedure of right knee History of knee replacement procedure of left knee Family History Mother Alzheimers disease Father CAD (coronary artery disease) Stroke Brother Thyroid disease Brother Colon cancer Brother Prostate cancer Sister Breast cancer Social History Household Members: Spouse Alcohol intake: current Alcohol intake frequency: other Patient Tobacco Use Status: Former Tobacco user Tobacco use type: Cigarette and Cigar Cigarette Packs Per Day: 1 Years Smoked: onset 18yo, 1ppd x 33yrs, 30pyh, quit 2007 Review of Systems Const All systems reviewed & are unremarkable except as noted in HPI and below Physical Exam Vital Signs: Last Vital Signs Pulse 52 12/23/23 10:50 BP 138/82 12/23/23 10:50 Pulse Ox 100 12/23/23 10:50 Oxygen Delivery Method Room Air 12/23/23 10:50 BMI result Body Mass Index 33.8 Const General: no acute distress Orientation/consciousness: patient oriented x3 HEENT Head: Yes normocephalic Resp Effort & Inspection: normal respiratory effort and able to speak in complete sentences Neuro General: patient oriented x3 Psych Mental Status: mental status grossly normal Speech and movement: Clear speech present Attitude: cooperative Results Reviewed Results Reviewed: PAP compliance report- see HPI Assessment & Plan Assessment & Plan (1) Obstructive sleep apnea: Comment: AHI 15.2/hr, REM AHI 27/hr, O2 dallin 76%. Code(s): G47.33 - Obstructive sleep apnea (adult) (pediatric) Category: Medical Plan Continue CPAP 13 cmH2O nightly > 4 hours, w/ EPR 0, as pt is sleeping well w/ use. May use Melatonin 3mg q 10pm to promote sleep maintenance Encouraged pt to increase physical activity. F/u in 12 months or sooner prn. Coding Level of Care Code Est Pt Level 3 (17778) Diagnoses Obstructive sleep apnea G47.33
[2023-12-23 10:50] VITALS: BP 138/82; PULSE 52; O2SAT 100; BMI 33.8
== END 2023-12-23 11:24 | disposition home or self-care (01) ==
PROVIDERS: PCP Nurse Practitioner Primary Care; Visit Provider Nurse Practitioner Family
DX: G47.33 Obstructive sleep apnea (adult) (pediatric) (principal)
CPT/HCPCS: 99213

== ENCOUNTER → 2023-12-23 10:19 | Outpatient (BNVA) | payer OTHER, SELFPAY | PROVIDERS: PCP Nurse Practitioner Primary Care; Visit Provider Nurse Practitioner Family | DX: G47.33 Obstructive sleep apnea (adult) (pediatric) (principal); Z99.89 Dependence on other enabling machines and devices | CPT/HCPCS: 99212 ==

== ENCOUNTER → 2024-05-22 08:59 | Outpatient (BNVA) | payer OTHER, SELFPAY | PROVIDERS: PCP Nurse Practitioner Primary Care; Visit Provider Urology | DX: N52.9 Male erectile dysfunction, unspecified (principal); I10 Essential (primary) hypertension; G47.39 Other sleep apnea; E78.5 Hyperlipidemia, unspecified; F17.210 Nicotine dependence, cigarettes, uncomplicated; F17.290 Nicotine dependence, other tobacco product, uncomplicated | CPT/HCPCS: 99212 ==

== ENCOUNTER 2024-12-21 10:32 | Outpatient (AMB) | payer OTHER, SELFPAY ==
[2024-12-21 10:35] VITALS: BP 120/70; PULSE 97; O2SAT 72; BMI 31.6
--- NOTE | 2024-12-21 10:35 | MHC.OFFVIS ---
Vital Signs 12/21/24 10:35 Height 5 ft 8 in Weight 208 lb BMI 31.6 BP 120/70 Blood Pressure Location Lt brachial Position Sitting Pulse 97 Pulse Source Pulse Oximeter Pulse Oximetry (%) 72 L Oxygen Delivery Method Room Air Intake Visit Reasons: 1 year F/U Intake Note: Patient presents 1 year follow up. Compliance in chart. Cargo Operations Agent Required: Yes Cargo Operations Agent Services: Cargo Operations Agent Offered & Declined Cargo Operations Agent Name: Daughter- Colleen Accompanied by: Daughter Allergies amlodepine Allergy (Uncoded 12/21/24 10:40) rash Lisinopril Adverse Reaction (Severe, Uncoded 12/21/24 10:36) nose bleed Medication List - Last Reconciled 12/21/24 by JAHAIRA Charlton aspirin 81 mg PO DAILY atorvastatin 40 mg PO BEDTIME blood pressure test kit-large As directed chlorthalidone 25 mg PO DAILY diclofenac sodium 1% 2 grams topical QID lisinopril 20 mg PO DAILY melatonin 3 mg PO BEDTIME PRN 30 days metoprolol tartrate 25 mg PO BID sildenafil 100 mg PO ONCE PRN 30 days HPI Comments Details: 69-yr-old male presents for follow-up visit. Pt Colleen, Jose. Pt denies any significant interval history changes. Pt reports he sleeps well with CPAP, even even though he continues to typically sleep no more than 5 hours a night. He denies daytime naps. You may take brief unintentional cat naps. States he usually has a enough daytime energy. He states he currently has enough supplies, but he needs a new order for refills. He does clean and change his CPAP supplies regularly. He uses distilled water in his CPAP water tank. He has noticed that the water tank is running dry by the morning. He also states that the water tank is tinged pink. He states he does cleaning every day- uses liquid hand soap to clean it. PAP compliance report reviewed- residual AHI is slightly higher than last year which was 2 per hour, currently almost 6 per hour. Patient is unaware of any specific changes in using his CPAP or symptoms related to using CPAP which would explain the increase in residual AHI. 09/15/2024 - 12/13/2024, 90 day CPAP compliance report shows: CPAP 13 cmH2O w/ EPR off Overall usage 100% Usage > 4 hrs 83% Average usage on days used 4 hours and 45 minutes Residual AHI 5.9 per hour [facility] Medical History Dilation of aorta (~03/2021) Personal history of nicotine dependence Mood disorder Essential hypertension Hyperlipidemia Obstructive sleep apnea Surgical History History of colonoscopy History of carpal tunnel surgery History of circumcision History of knee replacement procedure of right knee History of knee replacement procedure of left knee Family History Mother Alzheimers disease Father CAD (coronary artery disease) Stroke Brother Thyroid disease Brother Colon cancer Brother Prostate cancer Sister Breast cancer Social History Household Members: Spouse Alcohol intake: current Alcohol intake frequency: other Patient Tobacco Use Status: Former Tobacco user Tobacco use type: Cigarette and Cigar Cigarette Packs Per Day: 1 Years Smoked: onset 18yo, 1ppd x 33yrs, 30pyh, quit 2007 Physical Exam Vital Signs: Last Vital Signs Pulse 97 12/21/24 10:35 BP 120/70 12/21/24 10:35 Pulse Ox 72 L 12/21/24 10:35 Oxygen Delivery Method Room Air 12/21/24 10:35 BMI result Body Mass Index 31.6 Const General: no acute distress Orientation/consciousness: patient oriented x3 HEENT Head: Yes normocephalic Resp Effort & Inspection: normal respiratory effort and able to speak in complete sentences Neuro Other: Steady gait with cane General: patient oriented x3 Psych Mental Status: mental status grossly normal Speech and movement: Clear speech present Attitude: cooperative Assessment & Plan Assessment & Plan (1) Obstructive sleep apnea: Comment: AHI 15.2/hr, REM AHI 27/hr, O2 dallin 76%. Code(s): G47.33 - Obstructive sleep apnea (adult) (pediatric) Category: Medical Plan For SERGEI: Continue to use CPAP nightly greater than 4 hours, as overall he is having good clinical effect from use, however I have adjusted CPAP settings via ResMed air view in hopes this reduces residual AHI and prevents water tank from running dry. Stop CPAP 13 cm H2O with EPR off, with auto humidification level- currently set to level 6 with tube temperature 76 degrees. Start CPAP 13 cm H2O with EPR 3, with manual humidification level set to level 5 with tube temperature 76 degrees. Clean CPAP machine and supplies routinely- advised to not use hand soap to clean PAP supplies, but rather to use unscented regular jenna disc detergent. Change CPAP supplies routinely. Use distilled water in CPAP water reservoir. May use Melatonin 3mg q 10pm to promote sleep maintenance Continue to engage in regular physical activity, such as walks. We will check CPAP compliance report, to assess effectiveness of the above changes in approximately 4 weeks-an update patient accordingly. Will follow-up upon review of above and patient to follow-up in clinic in 12 months or sooner prn. Coding Level of Care Code Est Pt Level 3 (32201) Diagnoses Obstructive sleep apnea G47.33
--- OUTSIDE RECORDS SUMMARY | 2024-12-21 11:08 | XMS_ITS | Clinical Summary ---
Author Organization [facility] Address [address] [place] [address] Care Team Providers Care Carcass Splitter Name Role Phone Unavailable Primary Care Provider Unavailabl e Source Comments PLEASE NOTE, if this patient is a minor, it may be UNLAWFUL to discuss sensitive information that is contained in these records (such as FAMILY PLANNING, MENTAL HEALTH or SUBSTANCE ABUSE) with the minor patient's parent or other person without the patient's specific authorization.[facility] Allergies No known active allergies Medications leg brace (KNEE BRACE)Indications: Primary osteoarthritis of both knees Please provide hinged knee brace. Bilateral severe OA of knee. Severe pain. Use during the day. 2 Each 0 6 Active diclofenac sodium (VOLTAREN) [address] tabletIndications: Primary osteoarthritis of both knees Take 1 Tab by mouth 2 (two) times daily 60 Tab [address] Active aspirin [address] tabletIndications: Essential hypertension Take 1 Tab by mouth once daily 30 Tab 6 0 Active atorvastatin (LIPITOR) 20 mg tabletIndications: Elevated cholesterol Take 1 Tab by mouth once daily 30 Tab 0 Active amLODIPine (NORVASC) 5 mg tabletIndications: Essential hypertension Take 1 Tab by mouth once daily 30 Tab 0 Active chlorthalidone (HYGROTEN) 50 mg tabletIndications: Essential hypertension Take 1 Tab by mouth once daily 30 Tablet 1 1 Active losartan (COZAAR) 100 mg tabletIndications: Essential hypertension Take 1 Tab by mouth once daily 30 Tablet 1 1 Active metoprolol tartrate (LOPRESSOR) 25 mg tabletIndications: hypertension Take 1 Tab by mouth 2 (two) times daily Indications: high blood pressure 60 Tablet 1 1 Active Active Problems Problem Noted Date Diagnosed Date S/P TKR (total knee replacem ent) LEFT 08/24/2016 Dr. Pantoja. Rt mar 2016 08/31/2016 H/O colonoscopy 01/03/2014 Overview (11/15/2018): HAd colonoscopy 2009, Repeat in Apr 2014 (found again with tubular adenomas x5), needs repeat colonoscopy in 3 years. Colonoscopy done on 03/18/17 - repeat 5 years. Colon polyps 01/03/2014 Overview (06/05/2014): Result type: Histology Result date: 27 May 2014 11:08 Result status: Auth (Verified) Result title: Performed by: [id number] -UNKNOWN, PERSONNEL on 27 May 2014 11:08 Verified by: [email or web address] -UNKNOWN, PERSONNEL on 27 May 2014 11:08 Encounter info: [id number], [facility], [facility], 05/27/2014 - 05/27/2014 Contributor system: [employer] * Final Report * Patient Name: ALESHIA DAVE Lab Patient : 1955 (Age: 58) Collection Date: 05/27/2014 Accession Date: 05/27/2014 Sign Out Date: 05/28/2014 Tissue Source: 1: ASCENDING COLON POLYP (1) 2: TRANSVERSE COLON POLYPS (2) 3: SIGMOID POLYPS (2) Final Diagnosis: 1. Ascending colon, polypectomy: - Tubular adenoma. 2. Transverse colon, polypectomies: - Tubular adenoma(s), fragmented. 3. Sigmoid colon, polypectomies: - Two tubular adenomas, completely excised. Primary Pathologist:Pedrito Ku M.D. electronically signed out by: Pedrito Ku M.D. / JOSE ANTONIO Clinical History: Screening for colon cancer. Gross Description: Part 1. Labeled ascending colon polyp (one) . Received in formalin is one soft downey tissue fragment measuring 0.4 x 0.2 x 0.2 cm. The specimen is entirely submitted. 1-1 piece, x3. (DP)* Part 2. Labeled transverse colon polyps (two) . Received in formalin are three soft downey tissue fragments ranging from 0.3 x 0.2 x 0.2 cm up to 0.4 x 0.2 x 0.2 cm. The specimen is entirely submitted. 1-3 pieces, x3. (DP)* Part 3. Labeled sigmoid polyp (two) . Received in formalin are two soft pink, red tissue fragments measuring 0.8 x 0.3 x 0.3 cm and 0.9 x 0.4 x 0.3 cm. Both specimens inked, bisected, and entirely submitted. 1-2 pieces, x3. 2-2 pieces, x3. (DP)* Phone #: [phone], On-Call Pathologist: [id number] Fungal infection of nail 01/03/2014 Athletes foot 01/03/2014 OA (osteoarthritis) of knee 01/03/2014 Hypertensive retinopathy 11/30/2013 Overview (11/30/2013): Follows with Ernesto OWENS Cataracts, bilateral 11/30/2013 HTN (hypertension) Elevated cholesterol Immunizations Immunization Administration Dates Next Due Flu, Preservative Free 11/15/2018,06/28/2017 INFLUENZA, SEASONAL, INJECTABLE 05/12/2011 Influenza (FLUZONE), high-dose, trivalent, PF PNEUMOCOCCAL CONJUGATE PCV 13 02/15/2019 PNEUMOCOCCAL POLYSACCHARIDE PPV23 06/06/2012 PPD 02/15/2019 [facility] Flu Vaccine 05/30/2013, 012 TDAP 02/02/2018 Td (adult), 5 Lf tetanus toxoid, preservative fr ee 10/20/2005 Family History Medical History Relation Name Comments Heart Problems Father Diabetes Mother Relation Name Status Comments Father Mother Social History Tobacco Use Types Packs/Day Years Used Date Smoking Tobacco: Every Day Cigarettes 5 3 Cigars Smokeless Tobacco: Never Tobacco Cessation:Counseling Given: Yes Alcohol Use Standard Drinks/Week Comments Yes 0 (1 standard drink = 0.6 oz pur e alcohol) occ Social Connections Answer Date Recorded Social Connections and Isolation 0 04/21/2019 Financial Resource Strain Answer Date R ecorded Financial Resource Strain 0 2018 Stress Answer Date Recorded Stress 0 04/21/2019 Physical Activity Answer Date Recorded Physical Activity 0 04/21/2019 Food Insecurity Answer Date Recorded Food 0 04/21/2019 Transportation Needs Answer Date Record ed Transportation 0 04/21/2019 Housing Stability Answer Date Recorded Housing 0 04/21/2019 Safety and Environment Answer Date Dionicio rded Safety 0 04/21/2019 Utilities Answer Date Recorded Utilities 0 04/21/2019 Employment Answer Date Recorded Employment 0 04/21/2019 Sex and Gender Information Value Date Recorded Sex Assigned at Male 06/29/2017 2:16 PM PDT Legal Sex Male 11:02 AM PST Gender Identity Male 06/29/2017 2:16 PM PDT Sexual Orientation Straight 06/29/2017 2: 16 PM PDT Last Filed Vital Signs Vital Sign Reading Time Taken Comments Blood Pressure 112/80 09/27/2019 10:23 AM EST Pulse 65 09/27/2019 10:23 AM EST Temperature 37.1 ??C (98.7 ??F) 09/27/2019 10:[address] Respiratory Rate 16 09/27/2019 10:23 AM EST Oxygen Saturation 99% 02/15/2019 9:36 AM EDT Inhaled Oxygen Concentration - - Weight 93.9 kg (207 lb) 09/27/2019 10:23 AM EST Height 172.7 cm (5' 8 ) 09/27/2019 10:23 AM EST Body Mass Index 31.47 09/27/2019 10:23 AM EST Plan of Treatment Not on file [place] D[place]AL [facility] [place] [facility] [address] Advance Directives Healthcare Agents on File Name Relationship Healthcare Agent [facility] Communication [place] Spouse Health Care Agent
--- OUTSIDE RECORDS SUMMARY | 2024-12-21 11:08 | XMS_ITS | Clinical Summary ---
Author Organization [employer] Address [address] [place] [address] Care Team Providers Care Junior Web Developer Name Role Phone iVdhi Flood ELANA Primary Care Provider [phone] Allergies Active Allergy Reactions Criticality Noted Date Comments Amlodipine Swelling Medium 11/18/2022 Edema and nosebleeds Medications Diclofenac Sodium 1 % gel Apply 2 g topically every 6 (six) hours. 03/31/20 22 Active chlorthalidone (Hygroton) 25 MG tabletIndications:Prima ry hypertension TAKE 1 TABLET BY MOUTH EVERY DAY 90 tablet 3 09/29/19 23 Active metoprolol tartrate (Lopressor) 25 MG tabletIndications:Prima ry hypertension TAKE 1 TABLET BY MOUTH TWICE DAILY 180 tablet 1 01/02/20 24 Active lisinopril 20 MG tablet TAKE 1 TABLET BY MOUTH EVERY MORNING 90 tablet 1 01/02/20 24 Active Aspirin Adult Low Strength 81 MG EC tablet TAKE 1 TABLET BY MOUTH EVERY DAY 90 tablet 1 01/02/20 24 Active atorvastatin (Lipitor) 80 MG tabletIndications:Pure hypercholesterolemia TAKE 1 TABLET BY MOUTH DAILY IN THE MORNING 90 tablet 1 01/02/20 24 Active melatonin 3 MG tablet Take 3 mg by mouth if needed at bedtime for sleep. 10/10/19 24 Active sildenafil (Viagra) 100 MG tablet TAKE ONE TABLET BY MOUTH EVERY DAY NEEDED FOR SEXUAL ACTIVITY; ADMINISTER 60 MINUTES BEFORE INTENDED ACTIVITY 11/18/19 24 Active Active Problems Problem Noted Date Diagnosed Date Tubular adenoma of colon 03/31/2022 Lung nodule 02/09/2022 Erythrocytosis 04/19/2021 S/P TKR (total knee replacement) 08/31/2016 Hypertensive retinopathy 11/30/2013 Overview (11/18/2022): Follows with Ernesto OWENS Impaired glucose tolerance 11/14/2012 Hypertension 03/02/2012 Obstructive sleep apnea syndrome 03/02/2012 Pure hypercholesterolemia 08/29/1961 Immunizations Name Administration Dates Next Due Influenza injectable quadrivalent preservative f ree 11/15/2018,06/28/2017 Influenza, High Dose Seasonal, Preservative Free 09/27/2019 Influenza, IIV3, injectable 05/12/2011 Influenza, Split (incl. purified surface antigen ) 05/30/2013,06/06/2012 PPD Test 02/15/2019 Pneumococcal Conjugate PCV 13 02/15/2019 Pneumococcal Polysaccharide PPSV23 04/10/2021, Pneumococcal, Unspecified 06/06/2012 TD (adult), 2 Lf tetanus tox oid, preservative free, adsorbed 10/20/2005 Td (adult), 5 Lf tetanus tox oid, preservative free, adsorbed 10/20/2005 Tdap 02/02/2018 Zoster, Recombinant 01/21/2023,11/19/2022 Family History Medical History Relation Name Comments Other cancer Brother Gastric Prostate cancer Brother Breast cancer Sister Relation Name Status Comments Brother Sister Social History Tobacco Use Types Packs/Day Years Used Date Smoking Tobacco: Former Cigarettes Smokeless Tobacco: Never Tobacco Cessation:Counseling Given: Not Answered Alcohol Use Standard Drinks/Week Comments Yes 0 (1 standard drink = 0.6 oz pur e alcohol) SOCIALLY Housing Stability Answer Date Recorded What is your housing situation today? I have yoko gonzalez 06/30/[address] you li ve. Do you have problems with any of the following? None of the above 06/30/2023 Food Insecurity Answer Date Recorded Within the past 12 months, y ou worried that your food would run out before you got money to buy more: Never True 06/30/2023 Within the past 12 months,th e food you bought just didn't last and you didn't have enough money to get more: Never True 09/2022 Transportation Answer Date Recorded In the past 12 months, has l ack of transportation kept you from medical appts, meetings, work or from getting things needed for daily living? No 06/30/2023 Utilities Answer Date Recorded In the past 12 months, has t he electric, gas, oil or water company threatened to shut off services in your home? No 06/30/2023 Depression Answer Date Recorded Patient Health Questionnaire-2 Score 0 08/02/2022 Sex and Gender Information Value Date Recorded Sex Assigned at Male 06/28/2022 10:18 AM EDT Legal Sex Male 10:18 AM EDT Gender Identity Choose not to disclose 10:18 AM EDT Sexual Orientation Choose not to disclose 2021 10:18 AM EDT Last Filed Vital Signs Vital Sign Reading Time Taken Comments Blood Pressure 127/70 11/18/2022 1:51 PM EDT Pulse 64 11/18/2022 1:51 PM EDT Temperature 36.1 ??C (97 ??F) 08/02/2022 1:29 PM EST Respiratory Rate 16 11/18/2022 1:51 PM EDT Oxygen Saturation - - Inhaled Oxygen Concentration - - Weight 100 kg (220 lb 6.4 oz) 11/18/2022 1:51 PM EDT Height 172.7 cm (5' 8 ) 11/18/2022 1:51 PM EDT Body Mass Index 33.51 11/18/2022 1:51 PM EDT Plan of Treatment Health Maintenance Due Date Last Done Comments CT Colonography 1953 Colonoscopy 1953 Colorectal Cancer Screening 1953 FIT DNA/Cologuard 1953 FIT 1953 FOBT 1953 Sigmoidoscopy 1953 Alcohol/Substance Use Screening 1965 Depression Screening 08/02/2023 08/02/2022, 08/02/20 SDOH Screening 08/02/2023 08/02/2022 COVID-19 Vaccine ( season) 2024 Tobacco Screening 03/08/2025 03/08/2024 Lipid Panel 03/31/2027 03/31/2022, 04/10/2021 DTaP/Tdap/Td Vaccines (2 - Td or Tdap) 02/03/2028 02/02/2018, 10/20/2005, 10/20/2005 RSV Patients and Patients Aged 60 years or older (1 - 1-dose 75+ series) 2028 Hepatitis C Screening Completed 04/10/2021 Pneumococcal Vaccine: 50+ Years Completed 04/10/2021, 02/15/2019, 06/06/2012, Additional history exists Zoster Vaccines Completed 01/21/2023, 11/19/2022 Influenza Vaccine Completed 10/30/2024, , 09/01/2023, Additional history exists HIB Vaccines Aged Out No longer eligi ble based on patient's age to complete this topic HPV Vaccines Aged Out No longer eligi ble based on patient's age to complete this topic Hepatitis A Vaccines Aged Out No long er eligible based on patient's age to complete this topic Hepatitis B Vaccines Aged Out No long er eligible based on patient's age to complete this topic IPV Vaccines Aged Out No longer eligi ble based on patient's age to complete this topic Meningococcal Vaccine Aged Out No lianna aiyana eligible based on patient's age to complete this topic RSV under 20 months Aged Out No longe r eligible based on patient's age to complete this topic Rotavirus Vaccines Aged Out No longer eligible based on patient's age to complete this topic Procedures Procedure Name Priority Date/Time Associated Diagnosis Comments LIPID PANEL, STANDARD Routine 03/31/2022 11:12 AM EDT ZZZ HISTORICAL HEPATITIS C AB W/REFL TO HCV RNA, QN, PCR Routine 04/10/2021 11:44 AM EDT from Last 3 Months or Most Recently Relevant to Health Maintenance Results * (ABNORMAL) LIPID PANEL, STANDARD (03/31/2022 11:12 AM EDT) Chol/HDLC Ratio 4.4 <5.0 (calc) [facility] Cholesterol, Total 192 <200 mg/dL [facility] HDL Cholesterol 44 > OR = 40 mg/dL [facility] LDL Cholesterol 128(H) mg/dL (calc) [facility] Comment: Reference range: <100 ?? Desirable range <100 mg/dL for primary prevention; ?? <70 mg/dL for patients with CHD or diabetic patients ?? with > or = 2 CHD risk factors. ?? LDL-C is now calculated using the Tyson-Bates ?? calculation, which is a validated novel method providing ?? better accuracy than the Friedewald equation in the ?? estimation of LDL-C. ?? Tyson SS et al. SONIA. 2013;310(19): 3005-2207 ?? (http://Kleermail/faq/SQH255) Non-HDL Cholesterol 148(H) <130 mg/dL (calc) [facility] Comment: For patients with diabetes plus 1 major ASCVD risk ?? factor, treating to a non-HDL-C goal of <100 mg/dL ?? (LDL-C of <70 mg/dL) is considered a therapeutic ?? option. Triglycerides 97 <150 mg/dL [facility] 03/31/2022 11:1 2 AM EDT Marismonik Subramanian CREDIT VERIFICATION CLERK LAB BLOOD ORDERABLES Final Res ult Performing Organization Address [facility] Phone Number [facility] [address] * HEPATITIS C AB W/REFL TO HCV RNA, QN, PCR (04/10/2021 11:44 AM EDT) HEPATITIS C ANTIBODY NON-REACT FEDERICO NON-REACT FEDERICO [facility] INDEX 0.03 <1.00 [facility] Comment: ?? HCV antibody was non-reactive. There is no laboratory ?? evidence of HCV infection. ?? In most cases, no further action is required. However, if recent HCV exposure is suspected, a test for HCV RNA (test code 93635) is suggested. ?? For additional information please refer to http://Academic Earth.Labochema/faq/PVC90f7 (This link is being provided for informational/ educational purposes only.) ?? 04/10/2021 11:4 4 AM EDT Maris Marilynn CREDIT VERIFICATION CLERK HISTORICAL/NON ORDERABLE LABS Final Result Performing Organization Address [facility] Phone Number [facility] [address] from Last 3 Months or Most Recently Relevant to Health Maintenance Insurance Care Teams Junior Web Developer Relationship Specialty Start Date End Date Vidhi Flood ANP [address] [place] [id number] PCP - General Family Medicine 04/24/22
--- OUTSIDE RECORDS SUMMARY | 2024-12-21 11:08 | XMS_ITS | Encounter Summary ---
Author Organization [employer] Address [address] [place] [address] Care Team Providers Care Weapons Specialist Name Role Phone Vidhi Flood Primary Care Provider [phone] Encounter Details Date Type Department Care Team ([facility] st Contact Info) Description 08/10/2023 Orders Only [facility] MEDICINE [address] [place], [place] [phone] Vidhi Flood ANP [address] [place] [address] Abdominal aortic ectasia (CMS/HCC) (Primary Dx) Social History Tobacco Use Types Packs/Day Years Used Date Smoking Tobacco: Former Cigarettes Smokeless Tobacco: Never Alcohol Use Standard Drinks/Week Comments Yes 0 [...] not to disclose 2021 10:18 AM EDT documented as of this encounter Plan of Treatment Not on file documented as of this encounter Visit Diagnoses Diagnosis Abdominal aortic ectasia (CMS/HCC)- Primary Abdominal aortic ectasia documented in this encounter Care Teams Weapons Specialist Relationship Specialty Start Date End Date Vidhi Flood ANP [address] [place] [id number] PCP - General Family Medicine 04/24/22 documented as of this encounter
--- OUTSIDE RECORDS SUMMARY | 2024-12-21 11:08 | XMS_ITS | Clinical Summary ---
Author Organization [facility] [address] [place] [address] Address [address] [place] [address] Phone Care Team Providers Care Senior Process Control Tech Name Role Phone Debbie Petersen MD Primary Care Prov ider Allergies Active Allergy Reactions Criticality Noted Date Comments Amlodipine Swelling Medium 11/18/2022 Swelling, bloody nose Edema and nosebleeds Medications aspirin 81 mg EC tablet TAKE 1 TABLET BY MOUTH EVERY DAY 90 tablet 1 07/09/20 24 Active diclofenac (VOLTAREN) 1 % topical gel Apply 1 applicator topically 3 (three) times a day if needed (pain). 04/05/20 24 Active chlorthalidone (HYGROTON) 25 mg tablet TAKE 1 TABLET BY MOUTH EVERY DAY 90 tablet 1 12/13/19 25 Active lisinopriL (PRINIVIL,ZEST RIL) 20 mg tablet TAKE 1 TABLET BY MOUTH EVERY DAY 90 tablet 1 12/13/19 25 Active atorvastatin (LIPITOR) 80 mg tablet TAKE 1 TABLET BY MOUTH EVERY DAY 90 tablet 1 12/13/19 25 Active metoprolol tartrate (LOPRESSOR) 25 mg tablet TAKE 1 TABLET BY MOUTH TWICE A DAY 180 tablet 1 12/13/19 25 Active chlorthalidone (HYGROTON) 25 mg tablet TAKE 1 TABLET BY MOUTH EVERY DAY 90 tablet 1 07/09/20 24 025 Discontinued atorvastatin (LIPITOR) 80 mg tablet TAKE 1 TABLET BY MOUTH EVERY DAY 90 tablet 1 07/09/20 24 025 Discontinued lisinopriL (PRINIVIL,ZEST RIL) 20 mg tablet TAKE 1 TABLET BY MOUTH EVERY DAY 90 tablet 1 07/09/20 24 025 Discontinued metoprolol tartrate (LOPRESSOR) 25 mg tablet TAKE 1 TABLET BY MOUTH TWICE A DAY 180 tablet 1 07/09/20 24 025 Discontinued Active Problems Problem Noted Date Diagnosed Date Class 1 obesity due to exces s calories with serious comorbidity and body mass index (BMI) of 30.0 to 30.9 in adult 08/03/2024 Elevated cholesterol 07/09/2024 Depression 09/12/2023 Hyperlipidemia 09/12/2023 Assessment & Plan (10/30/2024 4:19 PM EST): Currently on atorvastatin 80mg. Will check a lipid profile before his next visit. Orders: Comprehensive metabolic panel; Future Hemoglobin A1c; Future Lipid panel with reflex to direct LDL; Future Prediabetes 09/12/2023 Assessment & Plan (10/30/2024 4:19 PM EST): Last A1c was 6.3. Recommended to follow a low-carb diet and exercise regularly. Tubular adenoma of colon 03/31/2022 Lung nodule 02/09/2022 Erythrocytosis 04/19/2021 S/P TKR (total knee replacement) 08/31/2016 Colon polyps 01/03/2014 Overview (07/09/2024): Result type: Histology Result date: 27 May 2014 11:08 Result status: Auth (Verified) Result title: Performed by: [email or web address] -UNKNOWN, PERSONNEL on 27 May 2014 11:08 Verified by: [email or web address] -UNKNOWN, PERSONNEL on 27 May 2014 11:08 Encounter info: [id number], [facility], Tracee Daystay, 05/27/2014 - 05/27/2014 Contributor system: [employer] * Final Report * Patient Name: ALESHIA [...] x3. 2-2 pieces, x3. (DP)* Phone #: [phone], On-Call Pathologist: [id number] Athletes foot 01/03/2014 Fungal infection of nail 01/03/2014 OA (osteoarthritis) of knee 01/03/2014 Cataracts, bilateral 11/30/2013 Hypertensive retinopathy 11/30/2013 Overview (07/09/2024): Follows with Ernesto OWENS Impaired glucose tolerance 11/14/2012 Hypertension 03/02/2012 Assessment & Plan (10/30/2024 4:19 PM EST): Well-controlled. 120/68 today. Currently on chlorthalidone, metoprolol, lisinopril. Will continue same medications. Patient is encouraged to follow a low-salt diet and exercise regularly. Will check a BMP for kidney function and electrolytes before his next visit. Orders: Comprehensive metabolic panel; Future Hemoglobin A1c; Future Lipid panel with reflex to direct LDL; Future Obstructive sleep apnea syndrome 03/02/2012 Assessment & Plan (10/30/2024 11:14 AM EST): On CPAP. Pure hypercholesterolemia 08/29/1961 Encounters Date Type Department Care Team Description 10/30/2024 11:00 AM EST Office Visit Adult Medicine [address] [phone] Debbie Razo MD Primary hypertension (Primary Dx); Mixed hyperlipidemia; Obstructive sleep apnea syndrome; Prediabetes; Influenza vaccine needed 10/02/2024 Telephone Adult Medicine [address] [phone] Debbie Razo MD Forms/questionnaires (CCA) from Last 3 Months Immunizations Name Administration Dates Next Due Influenza Quadrivalent, 0.5m l, preservative free (Fluarix; FluLaval; Fluzone) ages 6mo and older (Afluria) 3yo and older 11/15/2018,06/28/2017 Influenza Split 05/30/2013,06/06/2012 Influenza trivalent, 0.5mL (Fluad) 65yo and olde r 10/30/2024,09/01/2023 Influenza trivalent, 0.5mL ( Fluzone High-dose) 65yo and older 09/27/2019 Influenza trivalent, with pr eservative (Fluzone; Afluria) 6mo and older 05/12/2011 PPD Test 02/15/2019 Pneumococcal conjugate 13 va lent (Prevnar 13, PCV13) 2mo and older 02/15/2019 Pneumococcal polysaccharide 23 valent (Pneumovax 23) 2yo and older 04/10/2021,06/06/2012 Pneumococcal, Unspecified 06/06/2012 Td Tetanus diptheria, preser vative free (Tenivac) 7yo and older 10/20/2005 Tdap Tetanus diptheria acell ular pertussis (Boostrix; Adacel) 7yo and older 02/02/2018 Zoster recombinant (Shingrix) 19yo and older ,11/19/2022 Surgical History Surgery Date Site/Laterality Comments TOTAL KNEE ARTHROPLASTY Bilateral PROCEDURE: HISTORICAL TOTAL KNEE REPLACE; COMMENT: 2015 CARPAL TUNNEL RELEASE Bilateral PROCEDURE: HISTORICAL CARPAL TUNNEL REL Medical History Medical History Date Comments HTN (hypertension) DX:HTN (hyper tension) Mixed hyperlipidemia DX:Mixed hy perlipidemia Depression DX:Depression Family History Medical History Relation Name Comments Colon cancer Brother Other: heart condi Father Stroke Father Other: heart condition Mother Breast cancer Sister Relation Name Status Comments Brother Father Mother Sister Social History Tobacco Use Types Packs/Day Years Used Date Smoking Tobacco: Former Cigarettes Q uit: 08/29/2004 Smokeless Tobacco: Former Tobacco Cessation:Counseling Given: Not Answered Alcohol Use Standard Drinks/Week Comments Not Asked 0 (1 standard drink = 0.6 oz pur e alcohol) Sex and Gender Information Value Date Recorded Sex Assigned at Not on file Legal Sex Male 11:13 PM EST Gender Identity Not on file Sexual Orientation Not on file Obstetrics History Last Filed Vital Signs Vital Sign Reading Time Taken Comments Blood Pressure 120/68 10/30/2024 10:52 AM EST Pulse 67 10/30/2024 10:52 AM EST Temperature 36.2 ??C (97.2 ??F) 10/30/2024 10:[address] Respiratory Rate 16 10/30/2024 10:52 AM EST Oxygen Saturation - - Inhaled Oxygen Concentration - - Weight 93.6 kg (206 lb 6.4 oz) 10/30/2024 10:52 AM EST Height 172.7 cm (5' 8 ) 05/02/2024 11:02 AM EDT Body Mass Index 31.38 05/02/2024 11:02 AM EDT Plan of Treatment Upcoming Encounters Date Type Department Care Team (Late st Contact Info) Description 05/02/2025 11:30 AM EDT Office Visit Adult Medicine [address] [phone] Debbie Petersen MD [address] [place] [address] Health Maintenance Due Date Last Done Comments Social Influencers of Health Screening 09/28/2023 COVID-19 Vaccine (25 season) 2024 Hypertension/CHF/CAD Annual BMP Blood Test 04/05/2025 04/05/2024, 04/05/2024 Depression Screening 05/02/2025 05/02/2024 Falls Risk Assessment 05/02/2025 05/02/2024 Medicare Annual Wellness Visit 05/02/2025 05/02/2024 Colorectal Cancer Screening: Colonoscopy 03/22/2026 03/22/2023 DTaP,Tdap,and Td Vaccines (3 - Td or Tdap) 02/03/2028 02/02/2018, 10/20/2005 RSV Immunization Adult Patients (1 - 1-dose 75+ series) 2028 Cholesterol Screening (Lipid Panel) 04/05/2029 04/05/2024, 04/05/2024, 03/31/2022, Additional history exists Pneumococcal Vaccine: 50+ Years Completed 04/10/2021, 02/15/2019, 06/06/2012, Additional history exists Zoster Vaccines Completed 01/21/2023, 11/19/2022 Hepatitis C Screening Completed 09/07/2023 Abdominal Aortic Aneurysm (AAA) Screen Completed 04/13/2024, 04/13/2024, 04/13/2024 Influenza Vaccine Completed 10/30/2024, , 09/27/2019, Additional history exists HIB Vaccines Aged Out [...] on patient's age to complete this topic MMR Vaccines Aged Out No longer eligi ble based on patient's age to complete this topic Meningococcal ACWY Vaccine Aged Out N o longer eligible based on patient's age to complete this topic Meningococcal B Vaccine Aged Out No l onger eligible based on patient's age to complete this topic RSV Immunization Patients Under 20 months Aged Out No longer eligible based on patient's age to complete this topic Varicella Vaccines Aged Out No longer eligible based on patient's age to complete this topic Procedures Procedure Name Priority Date/Time Associated Diagnosis Comments DEPRESSION SCREENING Routine 05/02/2024 FALLS RISK ASSESSMENT Routine 05/02/2024 US ABDOMINAL AORTA REAL TIME SCREEN STUDY AAA Routine 04/13/2024 7:57 AM EDT Encounter for screening for cardiovascular disorders ANNUAL BMP BLOOD TEST Routine 04/05/2024 LIPID PANEL Routine 04/05/2024 HEPATITIS C SCREENING Routine 09/07/2023 COLONOSCOPY Routine 03/22/2023 from Last 3 Months or Most Recently Relevant to Health Maintenance Results * Falls Risk Assessment (05/02/2024) Falls Risk Assessment Abstracted us Historical Provider MD HEALTH MAINTENANCE Final Result * Depression Screening (05/02/2024) HM Depression Screening Abstracted us Historical Provider MD HEALTH MAINTENANCE Final Result * US ABDOMINAL AORTA REAL TIME SCREEN STUDY AAA (04/13/2024 7:57 AM EDT) Anatomical Region Laterality Modality Ultrasound 01/03/2024 12:5 6 PM EDT Narrative 04/13/2024 10:15 AM EDT History: Screening for abdominal aortic aneurysm. Ultrasound of the abdominal aorta: The abdominal aorta is normal in course, caliber and configuration. Proximal aortic AP diameter is 2.8 cm maximum. Mid aortic diameter is 2.0 cm, and distal aortic diameter is 1.3 cm. The common iliac arteries are normal in caliber as well. IMPRESSION: Negative screening examination for abdominal aortic aneurysm. Procedure Note James Jack MD - 06/13/2024 History: Screening for abdominal aortic aneurysm. Ultrasound of the abdominal aorta: The abdominal aorta is normal incourse, caliber and configuration. Proximal aortic AP diameter is 2.8 cm maximum. Mid aorticdiameter is 2.0 cm, and distal aortic diameter is 1.3 cm. The common iliac arteries are normalin caliber as well. IMPRESSION: Negative screening examination for abdominal aortic aneurysm. Result [facility] Debbie Petersen MD IMG US PROCEDURES Final Result * Annual BMP Blood Test (04/05/2024) [facility] Annual BMP Blood Test Abstracted Result [facility] Historical Provider HEALTH MAINTENANCE Final Result * Lipid panel (04/05/2024) [facility] LDL/HDL Ratio 3 0 - 4 Triglycerides 70 0 - 150 mg/dL Cholesterol 138 0 - 200 mg/dL HDL 47 >=40 mg/dL LDL Cholesterol 77 0 - 100 mg/dL Blood Venous blood specimen / Unknown Result [facility] Provider LAB BLOOD ORDERABLES Keyanna l Result * Hepatitis C Screening (09/07/2023) [facility] Hepatitis C Screening Abstracted Result [facility] Provider HEALTH MAINTENANCE Final Result * Colonoscopy (03/22/2023) [facility] Colonoscopy Abstracted, No interpretation Anatomical Region Laterality Modality Other Result [facility] Provider HEALTH MAINTENANCE Final Result from Last 3 Months or Most Recently Relevant to Health Maintenance Insurance [facility] MEDIC[facility] Member Subscriber Plan / Payer (Ef fective 2022-Present) Name:Aleshia Mak Relation to Subscriber:Self Name:Aleshia Mak Payer ID:[id number] Group ID:[id number] Type:Not on file Address: [place] [address] [address] [phone] Care Teams Senior Process Control Tech Relationship Specialty Start Date End Date Debbie Petersen MD [address] [place] [id number] PCP - General 03/23/23
== END 2024-12-21 11:20 | disposition home or self-care (01) ==
LOC: HO.HSMS 10:32
PROVIDERS: PCP Nurse Practitioner Primary Care; Visit Provider Nurse Practitioner Family
DX: G47.33 Obstructive sleep apnea (adult) (pediatric) (principal)
CPT/HCPCS: 99213

== ENCOUNTER → 2024-12-21 10:32 | Outpatient (BNVA) | payer OTHER, SELFPAY | PROVIDERS: PCP Nurse Practitioner Primary Care; Visit Provider Nurse Practitioner Family | DX: G47.33 Obstructive sleep apnea (adult) (pediatric) (principal); Z87.891 Personal history of nicotine dependence; Z99.89 Dependence on other enabling machines and devices | CPT/HCPCS: 99212 ==